=== PATIENT | male | born 1995 | race Caucasian/White ===

== ENCOUNTER 2024-06-13 02:14 | Emergency (ER) | payer OTHER, SELFPAY ==
--- NOTE | ~2024-06-13 | CT_ITS ---
CLINICAL HISTORY: right flank pain CT abdomen and pelvis without contrast Comparison: None Findings: Minor dependent atelectasis at the lung bases. 3 mm obstructing right distal ureteral stone just above the ureterovesicular junction. Mild right hydroureteronephrosis. 3 mm nonobstructing left inferior and 1 mm nonobstructing left mid/superior renal stones. Gallbladder and solid organs otherwise unremarkable. No bowel obstruction, pneumoperitoneum, or pneumatosis. Moderate stool in the right colon. Normal appendix. No ascites or hernia. No acute fracture. IMPRESSION: 3 mm obstructing right distal ureteral stone. This document has been electronically signed by: Henry Bello MD on 06/13/2024 04:07:28
[2024-06-13 02:24] VITALS: BP 130/94; PULSE 63; RESP 18; TEMP 36.6; O2SAT 100; BMI 24.9
[2024-06-13 02:45] LABS: MANUAL DIFF FLAG NO
[2024-06-13 02:47] LABS: Basophils Percent Auto 0.4 % (0-2); Eosinophils Absolute Auto 0.1 X10*3/uL (0.0-0.4); Eosinophils Percent Auto 1.9 % (0-4); Hematocrit 44.1 % (42.0-52.0); Hemoglobin 15.7 g/dl (14.0-18.0); Lymphocytes Absolute Auto 2.6 X10*3/uL (1.2-4.9); Lymphocytes Percent Auto 55.9 % (20-40); Mean Corpuscular HGB Conc 35.6 g/dl (31.0-36.0); Mean Corpuscular Hemoglobin 30.7 pg (27.0-33.0); Mean Corpuscular Volume 86.3 fL (80.0-98.0); Mean Platelet Volume 10.3 fL (9.4-12.4); Monocytes Absolute Auto 0.6 X10*3/uL (0.1-1.2); Monocytes Percent Auto 12.6 % (2-11); Neutrophils Absolute Auto 1.4 x10*3/uL (2.0-8.3); Neutrophils Percent Auto 29.2 % (45-73); Platelet Count 188 X10*3/uL (160-400); Red Blood Count 5.11 X10*6/uL (4.60-5.80); Red Cell Distribution Width 12.3 % (11.0-16.0); White Blood Count 4.7 X10*3/uL (4.8-10.8)
[2024-06-13] MEDS: Ketorolac Tromethamine 15 MG/ML VIAL IVPUSH (02:53)
[2024-06-13] MEDS: Morphine Sulfate 4 MG/ML CARTRIDGE IVPUSH (02:54)
[2024-06-13] MEDS: 0.9 % Sodium Chloride 1,000 ML 999 ML IV (02:54)
[2024-06-13] MEDS: Tamsulosin HCL 0.4 MG CAPSULE PO (02:54)
[2024-06-13 02:59] LABS: Alanine Aminotransferase 30 U/L (0-40); Albumin Level 4.2 g/dL (3.5-5.0); Alkaline Phosphatase 59 U/L (39-117); Anion Gap 14 (12-20); Aspartate Amino Transferase 28 U/L (5-37); Bilirubin Total 0.4 mg/dL (0.0-1.0); Blood Urea Nitrogen 17 mg/dL (9-16); Calcium 9.1 mg/dL (8.4-10.2); Carbon Dioxide 27 mmol/L (22-29); Chloride 104 mmol/L (96-108); Creatinine Clr Calc Pharmacy 99.5; Estimated Glomerular Filt Rate > 60; Glucose Random 109 mg/dL (60-115); Potassium 3.4 mmol/L (3.3-5.1); Sodium 142 mmol/L (135-145); Total Protein 7.1 g/dL (6.5-8.0)
[2024-06-13] MEDS: ondansetron HCL 4 MG/2 ML VIAL IVPUSH (03:03)
[2024-06-13 03:25] LABS: Influenza A PCR NEGATIVE (Negative); Influenza B PCR NEGATIVE (Negative); Resp Syncy Virus RNA Qual PCR NEGATIVE (Negative); SARS COV2 PCR INHOUSE NEGATIVE (Negative)
--- NOTE | 2024-06-13 03:42 | ED_ITS ---
HPI - General Adult General Chief complaint: Abdominal Pain Stated complaint: Urogenital Male Time Seen by Provider: 06/13/24 02:35 Source: patient Limitations: no limitations History of Present Illness ED Provider: Thelma Patel PA-C HPI narrative: 29-year-old male with a history of kidney stones presents with the acute onset right flank pain. Patient states he woke from sleep with right mid flank pain. The discomfort is nonradiating, fluctuates in intensity, becoming severe at times. Associated nausea vomiting. Denies dysuria or obvious hematuria. Patient states he has also had nausea vomiting diarrhea for the past 3 days. No fevers. Related Data Previous Rx's ?Medication ?Instructions ?Recorded ketorolac 10 mg tablet 10 mg PO TID PRN pain 5 days #15 06/13/24 tabs ondansetron 4 mg disintegrating 4 mg PO Q6H PRN nausea and 06/13/24 tablet vomiting #14 tabs oxycodone 5 mg tablet 5 mg PO BID PRN pain #5 tabs 06/13/24 tamsulosin 0.4 mg capsule 0.4 mg PO BEDTIME #10 caps 06/13/24 Allergies Allergy/AdvReac Type Severity Reaction Status Date / Time No Known Allergies Allergy Verified 06/13/24 02:25 Review of Systems 2 Review of Systems: Yes all other systems are reviewed and are negative Constitutional: Constitutional: Denies fatigue and Denies fever(s) Cardiovascular: Cardiovascular: Denies chest pain and Denies dyspnea Respiratory: Respiratory: Denies cough and Denies dyspnea Gastrointestinal: Gastrointestinal: Reports abdominal pain, Reports diarrhea, Reports nausea and Reports vomiting Genitourinary: Genitourinary: Reports flank pain Endocrine: Endocrine: Denies fatigue PMF Past Medical History Attestation statement: The following information was validated with the patient. Social History Social History Advance Directives: No Advance Directives Information Provided: Yes Do you have a plan to hurt others: No Plan Physical Exam ED Vital Signs: Vital Signs - 24 hr 06/13/24 02:24 Temperature 97.9 F Pulse Rate 63 Respiratory Rate 18 Blood Pressure 130/94 H Pulse Oximetry 100 Oxygen Delivery Method Room Air BMI result Body Mass Index 24.9 Const Other: Alert Orientation/consciousness: patient oriented x3 Resp Effort & Inspection: normal respiratory effort Cardio Other: Normal peripheral perfusion General: Yes no CVA tenderness Back/Spine/Pelvis Back: no CVA tenderness Skin Other: Warm dry no rash Neuro General: patient oriented x3, gait normal, no focal motor deficits and CN's II- XI intact bilaterally Psych Other: Cooperative Course Course Course Narrative: Signed out to night team pending imaging, urinalysis and final disposition Medications Administered Discontinued Medications Generic Name Dose Route Start Last Admin Trade Name Ashley PRN Reason Stop Dose Admin Sodium Chloride 1,000 mls @ 999 mls/hr 06/13/24 02:45 06/13/24 02:54 Ns IV 06/13/24 03:45 999 mls/hr .Q1H1M MIKE Administration Ketorolac Tromethamine 15 mg 06/13/24 02:40 06/13/24 02:53 Ketorolac Tromethamine 15 Mg/Ml Vial IVPUSH 06/13/24 02:41 15 mg ONCE ONE Administration Morphine Sulfate 4 mg 06/13/24 02:40 06/13/24 02:54 Morphine Sulfate 4 Mg/Ml Cartridge IVPUSH 06/13/24 02:41 4 mg ONCE ONE Administration Protocol Ondansetron HCl 4 mg 06/13/24 02:40 06/13/24 03:03 Ondansetron Hcl 4 Mg/2 Ml Vial IVPUSH 06/13/24 02:41 4 mg ONCE ONE Administration Tamsulosin HCl 0.4 mg 06/13/24 02:40 06/13/24 02:54 Tamsulosin Hcl 0.4 Mg Capsule PO 06/13/24 02:41 0.4 mg ONCE ONE Administration Medical Decision Making Medical Decision Making [facility] Narrative: 29-year-old male with a history of kidney stones presents with the acute onset right flank pain. Patient states he woke from sleep with right mid flank pain. The discomfort is nonradiating, fluctuates in intensity, becoming severe at times. Associated nausea vomiting. Denies dysuria or obvious hematuria. Patient states he has also had nausea vomiting diarrhea for the past 3 days. No fevers. Problem: Kidney stones History: Per patient I have considered the following differential diagnoses: Renal colic, pyelonephritis, UTI, cholecystitis, appendicitis Plan: Given distribution of discomfort in nature of symptoms, I am considering renal colic. We will be screening basic labs a UA, obtaining a CT scan. We will be giving IV fluids Zofran morphine Flomax and Toradol. Given right-sided symptoms I did consider cholecystitis, however he is not having postprandial symptoms, there was no focal right upper quadrant pain. Also considered appendicitis, but again, there was no focal right lower quadrant pain within this region. Do not think he has pyelonephritis, he is afebrile without CVA tenderness. I have independently reviewed the following tests: Labs: No leukocytosis, not anemic, no electrolyte abnormality, urine pending at the time of sign CT abdomen and pelvis: 3 mm right ureter stone Patient states that he is feeling better. Patient known to have previous history of kidney stones which required lithotripsy which was unsuccessful. Differential Diagnosis Differential Diagnoses: The differential diagnosis associated with the presentation includes (Pyelonephritis, ureterolithiasis.) Admission/Observation Consideration of admission/observation: Escalation of care including admission/observation considered (Given the patient's level of discomfort and presentation, observation was considered) Lab Data MDM Lab Attestation statement: I reviewed the patient's lab results. 06/13/24 02:36 06/13/24 02:36 Labs: Lab Results 06/13/24 06/13/24 Range/Units 02:36 04:10 WBC 4.7 L (4.8-10.8) X10*3/uL RBC 5.11 (4.60-5.80) X10*6/uL Hgb 15.7 (14.0-18.0) g/dl Hct 44.1 (42.0-52.0) % MCV 86.3 (80.0-98.0) fL MCH 30.7 (27.0-33.0) pg MCHC 35.6 (31.0-36.0) g/dl RDW 12.3 (11.0-16.0) % Plt Count 188 (160-400) X10*3/uL MPV 10.3 (9.4-12.4) fL Immature Gran % (Auto) 0.0 (0.0-0.4) % Neut % (Auto) 29.2 L (45-73) % Lymph % (Auto) 55.9 H (20-40) % [place] % (Auto) 12.6 H (2-11) % Eos % (Auto) 1.9 (0-4) % Baso % (Auto) 0.4 (0-2) % Lymph # (Auto) 2.6 (1.2-4.9) X10*3/uL [place] # (Auto) 0.6 (0.1-1.2) X10*3/uL Eos # (Auto) 0.1 (0.0-0.4) X10*3/uL Baso # (Auto) 0.0 (0.0-0.2) X10*3/uL Abs Immat Gran (auto) 0.00 (0.00-0.03) X10*3/uL Absolute Neuts (auto) 1.4 L (2.0-8.3) x10*3/uL Absolute Nucleated RBC 0.000 (0.0-0.012) X10*3/uL Nucleated RBC % (auto) 0.0 (0.0-0.2) /100WBC Sodium 142 (135-145) mmol/L Potassium 3.4 (3.3-5.1) mmol/L Chloride 104 (96-108) mmol/L Carbon Dioxide 27 (22-29) mmol/L Anion Gap 14 (12-20) BUN 17 H (9-16) mg/dL Creatinine 0.90 (0.5-1.4) mg/dL Estim Creat Clear Calc 99.5 Estimated GFR > 60 Random Glucose 109 (60-115) mg/dL Calcium 9.1 (8.4-10.2) mg/dL Magnesium 2.0 (1.6-2.6) mg/dL Total Bilirubin 0.4 (0.0-1.0) mg/dL AST 28 (5-37) U/L ALT 30 (0-40) U/L Alkaline Phosphatase 59 (39-117) U/L Total Protein 7.1 (6.5-8.0) g/dL Albumin 4.2 (3.5-5.0) g/dL Urine Color Yellow Urine Appearance Cloudy Urine pH 7.5 (5.0-9.0) Ur Specific [place] 1.020 (1.005-1.025) Urine Protein Negative (Neg-Trace) mg/dL Urine Glucose (UA) Negative (Negative) mg/dL Urine Ketones Trace (Negative) mg/dL Urine Blood Moderate (2+) H (Negative) Urine Nitrite Negative (Negative) Ur Leukocyte Esterase Negative (Negative) Urine RBC >20 H (0-2) /HPF Urine WBC 0-5 (0-5) /HPF Ur Squamous Epith Cells 0-2 (0-2) /HPF Urine Bacteria None Seen (None Seen) Hyaline Casts 0-2 (0-2) /LPF Influenza Type A (PCR) NEGATIVE (Negative) Influenza Type B (PCR) NEGATIVE (Negative) RSV RNA Qual (PCR) NEGATIVE (Negative) SARS-CoV-2 RNA (RT-PCR) NEGATIVE (Negative) Independent Interpretation I performed an independent interpretation of an: CT Scan Radiology Impression Discussion of test interpretation with radiology: I have reviewed the radiologist's reading. Radiologist Impression: 3 mm obstructing right distal ureteral stone just above the ureterovesicular junction. Mild right hydroureteronephrosis. 3 mm nonobstructing left inferior and 1 mm nonobstructing left mid/superior renal stones. Gallbladder and solid organs otherwise unremarkable. No bowel obstruction, pneumoperitoneum, or pneumatosis. Moderate stool in the right colon. Normal appendix. No ascites or hernia. No acute fracture. IMPRESSION: 3 mm obstructing right distal ureteral stone Critical Care Time Critical Care Time Critical Care Time: Yes Total Critical Care Time: 35 Attestation: I have personally provided critical care time. Time includes review of lab data, radiology results, discussion with consultants, and monitoring for potential decompensation. Intervention performed as documented. Discharge Plan Discharge Clinical Impression: Acute right flank pain, Ureterolithiasis Patient Disposition: Home, Self-Care Instructions: Renal Colic (ED), Ureteral Stones (ED) Additional Instructions: Please follow-up with your primary care physician tomorrow. Also, please follow-up with your urologist. In case you do not have 1, we will provide you with information of the urologist here at [facility]. If you have any worsening or new symptoms, please return to the emergency room or call 911 Prescriptions: New ketorolac 10 mg tablet 10 mg PO TID PRN (Reason: pain) 5 Days Qty: 15 0RF tamsulosin 0.4 mg capsule 0.4 mg PO BEDTIME Qty: 10 0RF ondansetron 4 mg tablet,disintegrating 4 mg PO Q6H PRN (Reason: nausea and vomiting) Qty: 14 0RF oxycodone 5 mg tablet 5 mg PO BID PRN (Reason: pain) Qty: 5 0RF Rx Instructions: Partial Fill upon patient request. Use only if ketorolac does not help alleviate the pain. Otherwise avoid taking this medication Referrals: Ishaan Olson MD [Physician] - 06/14/24 Print Language: Tamazight
[2024-06-13 04:15] LABS: Appearance Urine Cloudy; Color Urine Yellow; Glucose Urine UA Negative (Negative); Leukocyte Esterase Urine Negative (Negative); Nitrite Urine Negative (Negative); PH 7.5 (5.0-9.0); UMIC TRIGGER UACC YES; Urine Blood Moderate (2+) (Negative); Urine Ketones Trace mg/dL (Negative); Urine Protein Negative (Neg-Trace)
[2024-06-13 04:18] LABS: Bacteria Urine None Seen (None Seen); Hyaline Casts Urine 0-2 /LPF (0-2); RBC Urine >20 /HPF (0-2); Squamous Epithelial Cell Urine 0-2 /HPF (0-2); WBC Urine 0-5 /HPF (0-5)
[2024-06-13 06:18] VITALS: BP 104/73; PULSE 62; RESP 14; TEMP 36.6; O2SAT 98
[2024-06-13 06:37] VITALS: BP 104/73; PULSE 62; RESP 14; TEMP 36.6; O2SAT 98
== END 2024-06-13 06:38 | disposition home or self-care (01) ==
PROVIDERS: Emergency Provider Emergency Medicine; PCP Nurse Practitioner Family
DX: N13.2 Hydronephrosis with renal and ureteral calculous obstruction (principal); R10.9 Unspecified abdominal pain; R11.2 Nausea with vomiting, unspecified; Z03.818 Encounter for observation for suspected exposure to other biological agents ruled out
CPT/HCPCS: 0241U; 74176; 80053; 81001; 83735; 85025; 96374; 96375; 99283; 99284; J1885; J2270; J2405

== ENCOUNTER → 2024-06-13 02:37 | Outpatient (BNV) | payer OTHER, SELFPAY | PROVIDERS: Emergency Provider Emergency Medicine; PCP Nurse Practitioner Family; Visit Provider Radiology Diagnostic Radiology | DX: N20.1 Calculus of ureter (principal) | CPT/HCPCS: 74176 ==

== ENCOUNTER 2024-06-13 13:21 | Emergency (ER) | payer OTHER, SELFPAY ==
[2024-06-13] VITALS (7 sets, daily range): BP systolic 99–143; BP diastolic 61–96; PULSE 66–88; RESP 12–20; TEMP 36.4–36.6; O2SAT 95–100; BMI 24.7
--- NOTE | 2024-06-13 13:24 | ED_ITS ---
HPI - General Adult General Chief complaint: General Medical Stated complaint: severe kidney stone pain, vomiting Time Seen by Provider: 06/13/24 13:51 Source: patient Mode of arrival: ambulatory Limitations: no limitations History of Present Illness ED Provider: Elin Anne APRN HPI narrative: 29 yo male with a history of renal colic presents to the ER with complaints of right sided flank pain. Patient was seen here early this morning and diagnosed with a 3mm obstructing stone. [place] better on discharge. Since being home pain has returned and now he is vomiting. No fevers, chills, urinary symptoms. Patient reports that he has required lithotripsy in the past. Related Data Previous Rx's ?Medication ?Instructions ?Recorded ketorolac 10 mg tablet 10 mg PO TID PRN pain 5 days #15 06/13/24 tabs ondansetron 4 mg disintegrating 4 mg PO Q6H PRN nausea and 06/13/24 tablet vomiting #14 tabs oxycodone 5 mg tablet 5 mg PO BID PRN pain #5 tabs 06/13/24 tamsulosin 0.4 mg capsule 0.4 mg PO BEDTIME #10 caps 06/13/24 tamsulosin 0.4 mg capsule (Flomax) 0.4 mg PO DAILY #7 caps 06/13/24 Allergies Allergy/AdvReac Type Severity Reaction Status Date / Time No Known Allergies Allergy Verified 06/13/24 13:26 Review of Systems 2 Review of Systems: Yes all other systems are reviewed and are negative Constitutional: Constitutional: Reports no additional constitutional complaints, Denies body ache(s), Denies chills, Denies fever(s), Denies headache(s) and Denies weakness Eyes: Eyes: Reports no additional eye complaints and Denies change in vision ENT: Reports system reviewed and no additional complaints, except as documented, Denies dizziness, Denies headache(s), Denies nasal congestion, Denies nasal discharge and Denies neck pain Cardiovascular: Cardiovascular: Reports no additional cardiovascular complaints, Denies chest pain, Denies leg edema and Denies dyspnea Respiratory: Respiratory: Reports no additional respiratory complaints, Denies cough and Denies dyspnea Gastrointestinal: Gastrointestinal: Reports no additional gastrointestinal complaints, Reports abdominal pain, Denies diarrhea, Reports nausea and Reports vomiting Genitourinary: Genitourinary: Denies dysuria, Reports flank pain, Denies testicular pain, Denies urinary frequency, Denies urinary hesitancy, Denies urinary incontinence and Denies urinary urgency Musculoskeletal: Musculoskeletal: Reports no additional musculoskeletal complaints, Reports back pain, Denies arthralgias, Denies joint swelling, Denies neck pain, Denies numbness and Denies tingling Integumentary/Breasts: Skin/Breast: Reports system reviewed and no additional complaints, except as docu and Denies rash Neurologic: Reports system reviewed and no additional complaints, except as documented, Denies Abnormal speech present, Denies dizziness, Denies headache(s), Denies numbness, Denies tingling and Denies weakness PMFSH Past Medical History Attestation statement: The following information was validated with the patient. Source: old records reviewed and nursing notes reviewed Social History Social History Alcohol intake: current Alcohol intake frequency: holidays/special occasions only Smoked in Last 30 Days: No Use of substances other than those prescribed or required for medical reasons: No Advance Directives: No Advance Directives Information Provided: Yes Do you have a plan to hurt others: No Plan Physical Exam ED Vital Signs: Vital Signs - 24 hr 06/13/24 13:24 06/13/24 15:05 06/13/24 16:00 Temperature 97.5 F 97.6 F 97.7 F Pulse Rate 74 69 72 Respiratory Rate 20 12 14 Blood Pressure 143/96 H 113/83 99/61 Pulse Oximetry 100 98 98 Oxygen Delivery Method Room Air Room Air Room Air 06/13/24 18:00 06/13/24 20:06 Temperature 97.8 F Pulse Rate 78 88 Respiratory Rate 14 14 Blood Pressure 111/69 106/67 Pulse Oximetry 95 96 Oxygen Delivery Method Room Air Room Air BMI result Body Mass Index 24.7 Const General: cooperative, healthy appearing, comfortable and no acute distress Orientation/consciousness: patient oriented x3 Limitations: no limitations HENMT Head: Yes normal to inspection Ears: hearing grossly normal bilaterally General nose exam: Normal external nose present Face and sinus: Yes normal facial exam Mouth: Normal oral and palatal mucosa present Throat: Yes posterior oropharynx normal Eyes General: appearance normal, both eyes and all related structures Pupils: Equal, round and reactive pupils present Neck Neck: Yes normal visual inspection Chest Chest palpation & inspection: normal inspection of the chest Resp Effort & Inspection: normal respiratory effort Auscultation: clear to auscultation bilaterally Cardio Rate: regular rate Rhythm: regular rhythm Peripheral pulses: Peripheral pulses 2+ throughout GI Inspection: Yes normal to inspection Palpation (GI): Soft to palpation and nontender Auscultation: normal bowel sounds General: Yes CVA tenderness (right) Back/Spine/Pelvis Back: CVA tenderness (right) Thoracic/Lumbar Spine: thoracic and lumbar spine normal to inspection Skin General skin exam: no rashes or lesions noted Neuro General: patient oriented x3, no focal motor deficits and normal sensation to monofilament Cranial nerves: Yes Equal, round and reactive pupils present Cognition (Neuro): normal cognition Speech: No Abnormal speech present Gait exam (Neuro): Normal gait present Motor exam (neuro): 5/5 motor strength present throughout Extrem General: Yes normal to inspection Course Course Course Narrative: RME performed by Stacy Todd PA-C. Patient is a 29 year old assigned male at presenting to the emergency department with right sided flank pain with a known stone. Patient states that he was here a few hours ago and diagnosed with a kidney stone and now he is back because the pain is worse. Detailed physical exam and review of systems are deferred to the election watcher. Labs ordered. Patient placed back in the waiting room pending room availability and results. Reevaluation(s) Reevaluation #1: 1415- Continued pain. Will give dose of dilaudid IV Reevaluation #2: 1454-Continued pain. Will give dose of dilaudid IV. Reevaluation #3: 1600-Pain is better but continues. May need admission to urology at this point. Sent message to urology Additional Reevaluation(s): 1730-Spoke to urology. They feel patient can be held in the ER for another re- evaluation before admission. Recommended adding prednisone. Sign out to Catie RUIZ pending above Consultations Consultation #1: Kiran Patel PA-C have accepted care of the patient and signed out pending reassessment, in consult with Dr. Olson. The patient's symptoms are refractory, he is still in pain, he is actively vomiting. He should be admitted, he can not tolerate oral intake. I paged Dr. Olson, I explained the situation, he will be admitting the patient. He recommends NPO after midnight 952 pm Pt passed the stone, he has no pain, no nauea. would like to go home, will page Dr. Olson Time: 18:32 Medications Administered Discontinued Medications Generic Name Dose Route Start Last Admin Trade Name Ashley PRN Reason Stop Dose Admin Dicyclomine HCl 20 mg 06/13/24 20:16 06/13/24 21:12 Dicyclomine Hcl 10 Mg Capsule PO 06/13/24 20:17 20 mg ONCE ONE Administration Hydromorphone HCl 1 mg 06/13/24 14:15 06/13/24 14:18 Hydromorphone Hcl 1 Mg/Ml Syringe IVPUSH 06/13/24 14:16 1 mg ONCE ONE Administration Protocol Hydromorphone HCl 1 mg 06/13/24 14:54 06/13/24 15:02 Hydromorphone Hcl 1 Mg/Ml Syringe IVPUSH 06/13/24 14:55 1 mg ONCE ONE Administration Protocol Hydromorphone HCl 0.5 mg 06/13/24 16:31 06/13/24 17:00 Hydromorphone Hcl 0.5 Mg/0.5 Ml Syringe IVPUSH 06/13/24 16:32 0.5 mg ONCE ONE Administration Protocol Sodium Chloride 1,000 mls @ 999 mls/hr 06/13/24 13:52 06/13/24 15:32 Ns IV 06/13/24 14:52 Infused .Q1H1M STA Infusion Ketorolac Tromethamine 15 mg 06/13/24 13:53 06/13/24 14:03 Ketorolac Tromethamine 15 Mg/Ml Vial IVPUSH 06/13/24 13:54 15 mg ONCE ONE Administration Methylprednisolone Sodium Succinate 125 mg 06/13/24 18:36 06/13/24 18:56 Methylprednisolone Sod Succ 125 Mg/2 Ml Vial IVPUSH 06/13/24 18:37 125 mg ONCE ONE Administration Morphine Sulfate 4 mg 06/13/24 13:52 06/13/24 14:01 Morphine Sulfate 4 Mg/Ml Cartridge IVPUSH 06/13/24 13:53 4 mg ONCE ONE Administration Protocol Ondansetron HCl 4 mg 06/13/24 13:52 06/13/24 14:04 Ondansetron Hcl 4 Mg/2 Ml Vial IVPUSH 06/13/24 13:53 4 mg ONCE ONE Administration Ondansetron HCl 4 mg 06/13/24 18:29 06/13/24 18:32 Ondansetron Hcl 4 Mg/2 Ml Vial IVPUSH 06/13/24 18:30 4 mg ONCE ONE Administration Prednisone 40 mg 06/13/24 17:37 06/13/24 17:55 Prednisone 20 Mg Tablet PO 06/13/24 17:38 40 mg ONCE ONE Administration Tamsulosin HCl 0.4 mg 06/13/24 14:03 06/13/24 14:14 Tamsulosin Hcl 0.4 Mg Capsule PO 06/13/24 14:04 0.4 mg ONCE ONE Administration Medical Decision Making Medical Decision Making [facility] Narrative: 29 yo male with a history of renal colic presents to the ER with complaints of right sided flank pain. Patient was seen here early this morning and diagnosed with a 3mm obstructing stone. [place] better on discharge. Since being home pain has returned and now he is vomiting. No fevers, chills, urinary symptoms. Patient reports that he has required lithotripsy in the past. R CVAT on exam Will send labs, UA Will give IVF, antiemetic, toradol, morphine, flomax Differential Diagnosis Differential Diagnoses: The differential diagnosis associated with the presentation includes Renal colic Admission/Observation Consideration of admission/observation: Escalation of care including admission/observation considered Consult Healthcare Provider Management of the patient was discussed with: Powerhouse Helper Lab Data [facility] Lab Attestation statement: I reviewed the patient's lab results. 06/13/24 14:31 06/13/24 14:31 Labs: Lab Results 06/13/24 06/13/24 Range/Units 14:31 15:34 WBC 6.3 (4.8-10.8) X10*3/uL RBC 4.78 (4.60-5.80) X10*6/uL Hgb 14.8 (14.0-18.0) g/dl Hct 40.8 L (42.0-52.0) % MCV 85.4 (80.0-98.0) fL MCH 31.0 (27.0-33.0) pg MCHC 36.3 H (31.0-36.0) g/dl RDW 12.1 (11.0-16.0) % Plt Count 164 (160-400) X10*3/uL MPV 10.0 (9.4-12.4) fL Immature Gran % (Auto) 0.2 (0.0-0.4) % Neut % (Auto) 77.6 H (45-73) % Lymph % (Auto) 15.8 L (20-40) % [place] % (Auto) 5.9 (2-11) % Eos % (Auto) 0.3 (0-4) % Baso % (Auto) 0.2 (0-2) % Lymph # (Auto) 1.0 L (1.2-4.9) X10*3/uL [place] # (Auto) 0.4 (0.1-1.2) X10*3/uL Eos # (Auto) 0.0 (0.0-0.4) X10*3/uL Baso # (Auto) 0.0 (0.0-0.2) X10*3/uL Abs Immat Gran (auto) 0.01 (0.00-0.03) X10*3/uL Absolute Neuts (auto) 4.9 (2.0-8.3) x10*3/uL Absolute Nucleated RBC 0.000 (0.0-0.012) X10*3/uL Nucleated RBC % (auto) 0.0 (0.0-0.2) /100WBC Sodium 143 (135-145) mmol/L Potassium 3.6 (3.3-5.1) mmol/L Chloride 111 H (96-108) mmol/L Carbon Dioxide 23 (22-29) mmol/L Anion Gap 13 (12-20) BUN 14 (9-16) mg/dL Creatinine 0.82 (0.5-1.4) mg/dL Estim Creat Clear Calc 109.2 Estimated GFR > 60 Random Glucose 131 H (60-115) mg/dL Calcium 8.6 (8.4-10.2) mg/dL Total Bilirubin 0.5 (0.0-1.0) mg/dL AST 25 (5-37) U/L ALT 27 (0-40) U/L Alkaline Phosphatase 52 (39-117) U/L Total Protein 6.5 (6.5-8.0) g/dL Albumin 3.9 (3.5-5.0) g/dL Urine Color Yellow Urine Appearance Turbid Urine pH >= 9.0 (5.0-9.0) Ur Specific [place] 1.025 (1.005-1.025) Urine Protein 30 (1+) H (Neg-Trace) mg/dL Urine Glucose (UA) Negative (Negative) mg/dL Urine Ketones 40 (Negative) mg/dL Urine Blood Negative (Negative) Urine Nitrite Negative (Negative) Ur Leukocyte Esterase Negative (Negative) Urine RBC 0-2 (0-2) /HPF Urine WBC 0-5 (0-5) /HPF Ur Squamous Epith Cells 0-2 (0-2) /HPF Urine Bacteria None Seen (None Seen) Hyaline Casts 0-2 (0-2) /LPF Independent Historian Clinical information obtained from an independent historian. History obtained from or confirmed by: Spouse Discharge Plan Discharge Clinical Impression: Ureterolithiasis, Acute right flank pain Instructions: Renal Colic (ED) Additional Instructions: You passed the kidney stone. Return precautions for new onset of flank pain, intractable nausea vomiting, fever or inability to urinate. Otherwise follow up with primary care as needed. I am going to send you with a contact for Dr. Olson, our urologist, in the event that you require his services. Take the Flomax daily for the next week. Prescriptions: New tamsulosin [Flomax] 0.4 mg capsule 0.4 mg PO DAILY Qty: 7 0RF No Action ketorolac 10 mg tablet 10 mg PO TID PRN (Reason: pain) 5 Days Qty: 15 0RF tamsulosin 0.4 mg capsule 0.4 mg PO BEDTIME Qty: 10 0RF ondansetron 4 mg tablet,disintegrating 4 mg PO Q6H PRN (Reason: nausea and vomiting) Qty: 14 0RF oxycodone 5 mg tablet 5 mg PO BID PRN (Reason: pain) Qty: 5 0RF Rx Instructions: Partial Fill upon patient request. Use only if ketorolac does not help alleviate the pain. Otherwise avoid taking this medication Print Language: Faroese
[2024-06-13] MEDS: Morphine Sulfate 4 MG/ML CARTRIDGE IVPUSH (14:01)
[2024-06-13] MEDS: Ketorolac Tromethamine 15 MG/ML VIAL IVPUSH (14:03)
[2024-06-13] MEDS: ondansetron HCL 4 MG/2 ML VIAL IVPUSH ×2 (14:04→18:32)
[2024-06-13] MEDS: 0.9 % Sodium Chloride 1,000 ML 999 ML IV (14:12)
[2024-06-13] MEDS: Tamsulosin HCL 0.4 MG CAPSULE PO (14:14)
[2024-06-13] MEDS: HYDROmorphone HCl 1 MG/ML SYRINGE IVPUSH ×2 (14:18→15:02)
[2024-06-13 14:35] LABS: MANUAL DIFF FLAG NO
[2024-06-13 14:39] LABS: Basophils Percent Auto 0.2 % (0-2); Eosinophils Percent Auto 0.3 % (0-4); Hematocrit 40.8 % (42.0-52.0); Hemoglobin 14.8 g/dl (14.0-18.0); Imm Gran Abs Auto 0.01 X10*3/uL (0.00-0.03); Imm Gran Pct Auto 0.2 % (0.0-0.4); Lymphocytes Percent Auto 15.8 % (20-40); Mean Corpuscular HGB Conc 36.3 g/dl (31.0-36.0); Mean Corpuscular Volume 85.4 fL (80.0-98.0); Monocytes Absolute Auto 0.4 X10*3/uL (0.1-1.2); Monocytes Percent Auto 5.9 % (2-11); Neutrophils Absolute Auto 4.9 x10*3/uL (2.0-8.3); Neutrophils Percent Auto 77.6 % (45-73); Platelet Count 164 X10*3/uL (160-400); Red Blood Count 4.78 X10*6/uL (4.60-5.80); Red Cell Distribution Width 12.1 % (11.0-16.0); White Blood Count 6.3 X10*3/uL (4.8-10.8)
[2024-06-13 14:49] LABS: Alanine Aminotransferase 27 U/L (0-40); Albumin Level 3.9 g/dL (3.5-5.0); Alkaline Phosphatase 52 U/L (39-117); Anion Gap 13 (12-20); Aspartate Amino Transferase 25 U/L (5-37); Bilirubin Total 0.5 mg/dL (0.0-1.0); Blood Urea Nitrogen 14 mg/dL (9-16); Calcium 8.6 mg/dL (8.4-10.2); Carbon Dioxide 23 mmol/L (22-29); Chloride 111 mmol/L (96-108); Creatinine Clr Calc Pharmacy 109.2; Estimated Glomerular Filt Rate > 60; Glucose Random 131 mg/dL (60-115); Potassium 3.6 mmol/L (3.3-5.1); Sodium 143 mmol/L (135-145); Total Protein 6.5 g/dL (6.5-8.0)
[2024-06-13 15:43] LABS: Appearance Urine Turbid; Color Urine Yellow; Glucose Urine UA Negative (Negative); Leukocyte Esterase Urine Negative (Negative); Nitrite Urine Negative (Negative); PH >= 9.0 (5.0-9.0); Specific Gravity - Urine 1.025 (1.005-1.025); UMIC TRIGGER UACC YES; Urine Blood Negative (Negative); Urine Ketones 40 mg/dL (Negative); Urine Protein 30 (1+) mg/dL (Neg-Trace)
[2024-06-13 15:48] LABS: Bacteria Urine None Seen (None Seen); Hyaline Casts Urine 0-2 /LPF (0-2); RBC Urine 0-2 /HPF (0-2); Squamous Epithelial Cell Urine 0-2 /HPF (0-2); WBC Urine 0-5 /HPF (0-5)
[2024-06-13] MEDS: HYDROmorphone HCl 0.5 MG/0.5 ML SYRINGE IVPUSH (17:00)
[2024-06-13] MEDS: predniSONE 20 MG TABLET 40 MG PO (17:55)
[2024-06-13] MEDS: methylPREDNISolone Sod Succ 125 MG/2 ML VIAL IVPUSH (18:56)
[2024-06-13] MEDS: Dicyclomine HCl 10 MG CAPSULE 20 MG PO (21:12)
--- NOTE | 2024-06-13 21:30 | PC.NURSE ---
pt ambulated to bathroom. reports stream of urine stopped for a second then he felt some relief and obsereved a small object exit his urethra and fall into toilet. stone obtained from toilet and placed in specimen cup. approx 3mm stone shown to JOSEPH Haddad
== END 2024-06-13 22:43 | disposition home or self-care (01) ==
PROVIDERS: Physician Assistant Medical; Emergency Provider Emergency Medicine; PCP Nurse Practitioner Family
DX: N13.2 Hydronephrosis with renal and ureteral calculous obstruction (principal); R10.9 Unspecified abdominal pain
CPT/HCPCS: 36415; 80053; 81001; 85025; 96361; 96374; 96375; 96376; 99284; 99285; J1171; J1885; J2270; J2405; J2919